=== PATIENT | female | born 1985 | race Caucasian/White ===

== ENCOUNTER 2020-11-29 08:03 | Emergency (ER) | payer OTHER ==
[~2020-11-29] VITALS: Ht 170.2 cm; Wt 50.4 kg
--- NOTE | 2020-11-29 08:19 | PHYS DOC ---
General Adult EDM: Chief Complaint: OVERDOSE HPI: HPI: Patient is a 35-year-old female brought in by EMS after father called. Patient's father was concerned because patient was acting groggy and stumbling. She was in the bathroom holding her bottle of Xanax. Per EMS report patient's father states he filled her prescription of Xanax for 35 pills, 2 mg, yesterday evening. Patient's father states there is 16 pills missing out the bottle. Patient states she only took an equivalent of 1. States she took half yesterday evening and a second half of a pill last night to help her sleep. Denies any other coingestions. Patient admits to a history of multiple drug abuse including heroin, and methadone. Patient also used to use methamphetamines. Last marijuana use 1 to 2 weeks ago. Denies any alcohol use or other medication overdoses. Patient states she did not take an increased number of her pills and is not suicidal. Patient tearful and stating that she wants to have her baby, she is also stating that she has some right lower quadrant abdominal pain that she believes is her ovulating. Patient does have a history of a right-sided ectopic required surgical excision about 1 year ago. Patient also states she is sexually active and has not had a menstrual cycle in 2 months. Per father patient has a history of depression and bipolar. She quit her methadone and psychiatric medications cold turkey in August 2020. Had been living with her lopez and his teenage son but she has been staying with her father and stepmother for the past 5 days because lopez could not handle her. She has been having increasingly erratic behavior including paranoid thoughts and delusions. Mother states that he thinks she has been hearing voices and has been having paranoid tendencies. He states that he found her about 715 this morning in her bed holding her bottle of Xanax which was open. He says he checked the bedding and sheets but did not find any more pills. He states that when he counted there were 16 pills out of the 35 pill bottle. He says that she had seen a psychiatrist in the past and he contacted them but was not able to get in with them but the physician agreed to represcribe her previous medications. Patient was seen and offered a spot at [facility] about 4 days ago but patient refused. Review of Systems: Review of Systems: All other systems within normal limits except for as noted in the HPI Physical Exam: PE: Constitutional: Well developed, well nourished, no acute distress, non-toxic appearance. [] HENT: Normocephalic, atraumatic, bilateral external ears normal, nose normal. [] Eyes: PERRLA, conjunctiva normal, no discharge. [] Neck: No rigidity, supple, no stridor. [] Cardiovascular: Regular rate and rhythm, brisk cap refill [] Lungs & Thorax: Non labored symmetric respirations, no tachypnea or respiratory distress [] Abdomen: Soft, nondistended, right lower quadrant abdominal pain without rebound or guarding. Skin: Warm, dry, no erythema, no rash. [] Back: Unremarkable Extremities: No deformities, range of motion grossly intact, no lower extremity edema [] Neurologic: Alert and oriented X 3, no focal deficits noted. [] Psychologic: Tearful, noninsightful thinking. [] EKG: EKG: [] Radiology/Procedures: Radiology/Procedures: [] Heart Score: C/O Chest Pain: N/A Risk Factors: Risk Factors: DM, Current or recent (<one month) smoker, HTN, HLP, family h istory of CAD, obesity. Risk Scores: Score 0 - 3: 2.5% MACE over next 6 weeks - Discharge Home Score 4 - 6: 20.3% MACE over next 6 weeks - Admit for Clinical Observation Score 7 - 10: 72.7% MACE over next 6 weeks - Early Invasive Strategies Course & Med Decision Making: Course & Med Decision Making After PET evaluation he is appropriate for inpatient treatment. We will go to [facility] for drug rehab and psych evaluation. Patient agrees to plan Dragon Disclaimer: [employer] Disclaimer: This electronic medical record was generated, in whole or in part, using a voice recognition dictation system. Departure Departure: Impression: Primary Impression: Paranoia Additional Impression: Benzodiazepine abuse Disposition: 01 DC HOME SELF CARE/HOMELESS Condition: STABLE Referrals: PCP,NO (PCP) Patient Instructions: Alcohol and Drug Addiction, Finding Treatment BROCK TREVIZO MD Nov 29, 2020 08:19
[2020-11-29 09:06] LABS: BASO % 0 % (0-3); EOS # 0.1 x10^3/uL (0.0-0.7); EOS % 1 % (0-3); HEMATOCRIT 41.4 % (36.0-47.0); HEMOGLOBIN 13.4 g/dL (12.0-15.5); LYMPH # 2.3 x10^3/uL (1.0-4.8); LYMPH % 36 % (24-48); MEAN CORPUSCULAR HEMOGLOBIN 29 pg (25-35); MEAN CORPUSCULAR HGB CONC 32 g/dL (31-37); MEAN CORPUSCULAR VOLUME 89 fL (79-100); MONO # 0.4 x10^3/uL (0.0-1.1); MONO % 7 % (0-9); NEUT # 3.6 x10^3uL (1.8-7.7); NEUT % 56 % (31-73); PLATELET COUNT 442 x10^3/uL (140-400); RED BLOOD COUNT 4.69 x10^6/uL (3.50-5.40); RED CELL DISTRIBUTION WIDTH 15.1 % (11.5-14.5); WHITE BLOOD COUNT 6.4 x10^3/uL (4.0-11.0)
[2020-11-29 09:08] LABS: CREATININE 0.9 mg/dL (0.6-1.0); GFR 72.1; POTASSIUM 4.1 mmol/L (3.5-5.1)
[2020-11-29 09:14] LABS: ALBUMIN 3.6 g/dL (3.4-5.0); MAGNESIUM 2.1 mg/dL (1.8-2.4); TOTAL BILIRUBIN 0.4 mg/dL (0.2-1.0); TOTAL PROTEIN 7.1 g/dL (6.4-8.2)
[2020-11-29 09:15] LABS: ACETAMIN < 2.0 mcg/mL (10-30); ETHANOL < 10 mg/dL (0-10); SALIC < 2.8 mg/dL (2.8-20.0)
[2020-11-29 11:30] LABS: BARBITURATES NEG (NEG); BENZODIAZEPINES POS (NEG); CANNABINOIDS NEG (NEG); COCAINE NEG (NEG); METHADONE NEG (NEG); OPIATES NEG (NEG); PHENCYCLIDINE NEG (NEG)
[2020-11-29 11:31] LABS: AMPHETAMINE/METHAMPHETAMINE NEG (NEG)
[2020-11-29 11:42] LABS: BILIRUBIN,URINE NEG (NEG); CLARITY,URINE CLEAR; COLOR,URINE YELLOW; GLUCOSE,URINE NEG (NEG)
[2020-11-29 11:43] LABS: BACTERIA,URINE FEW /HPF (0-FEW); NITRITE,URINE NEG (NEG); RBC,URINE OCC /HPF (0-2); SQUAMOUS EPITHELIAL CELL,UR MOD /LPF; UROBILINOGEN,URINE 0.2 mg/dL (0.2 mg/dL); WBC,URINE OCC /HPF (0-4)
[2020-11-29 12:09] LABS: U PREG PATIENT NEGATIVE (NEG)
== END 2020-11-29 13:00 | disposition home or self-care (01) ==
LOC: ER 08:03
DX: F22 Delusional disorders (principal); F19.10 Other psychoactive substance abuse, uncomplicated; F31.9 Bipolar disorder, unspecified; Z20.822 Contact with and (suspected) exposure to COVID-19
CPT/HCPCS: 36415; 80053; 80307; 80329; 81001; 81025; 83735; 85025; 87426; 99283; C9803; G0480; U0003